=== PATIENT | male | born 1945 | race Caucasian/White ===

== ENCOUNTER → 2016-07-05 | Outpatient (CLI) | payer BC ==
[~2016-07-05] MED LIST: ACET325T96 PO; ASPI-435 PO; FLAX1CAP11 PO; IBUP-1050 PO; MULT-106 PO; OMEG10002 PO; RANI1TAB75 PO; REDCAP2 PO; SAW450CA5 PO; SELE200T2 PO; VTMD1000 PO
--- NOTE | 2016-07-09 11:44 | CODING QUERY MEDICAL NECESSITY ---
SUPPORTING DIAGNOSIS NEEDED Dr. Mckoy, A supporting diagnosis is required for the test/procedure performed on this patient in order for us to be reimbursed by the patient's insurance. Please provide a supporting diagnosis for the following test/procedure listed below next to the test name along with your signature. *If there is no additional diagnosis for this patient that would support the following test/procedure please document that below next to the test/procedure. Test(s)/Procedure(s) that require a supporting diagnosis: * [id number] PSA DIAGNOSIS: DATE OF SERVICE: 07/05/16 Provider Signature: Date: Thank you Steven Reyes [facility] Information Management Once completed, please kindly fax back to [phone] For questions please call [phone]
== END | disposition home or self-care (01) ==
LOC: C.LABBFT 10:22
PROVIDERS: ATTEND Urology
DX: N20.0 Calculus of kidney (principal); R10.9 Unspecified abdominal pain; R97.20 Elevated prostate specific antigen [PSA]; N40.1 Benign prostatic hyperplasia with lower urinary tract symptoms

== ENCOUNTER → 2016-11-12 | Outpatient (CLI) | payer BC | END | disposition home or self-care (01) | LOC: C.RDSM 15:40 | PROVIDERS: ATTEND Family Medicine Sports Medicine | DX: M25.512 Pain in left shoulder (principal) ==

== ENCOUNTER 2017-03-14 21:57 | Emergency (ER) | payer BC ==
[~2017-03-14] VITALS: Ht 182.9 cm; Wt 92.0 kg
[2017-03-14 22:04] VITALS: TEMP 36.7; Ht 182.9 cm; Wt 92.0 kg
[2017-03-14] MEDS ORDERED: ASPIRIN 81 MG CHEW PO STA (22:34)
[2017-03-14 22:39] VITALS: O2SAT 98
[2017-03-14] MEDS ORDERED: NITROGLYCERIN 0.4 MG SL PER TAB CHARGE SL PRN (22:45)
--- NOTE | 2017-03-14 22:48 | EMERGENCY ROOM VISIT NOTE ---
History Report prepared by Kirstin: Christiano Vang Under the Supervision of: Dr. Sophia Esquivel M.D. First contact with patient: 22:14 Chief Complaint: CARDIAC ASSESSMENT Stated Complaint: PAIN IN CHEST History of Present Illness The patient is a 71 year old male who presents to the Emergency Room with complaints of intermittent chest pain beginning yesterday. The patient states he developed his discomfort yesterday, and he thought it went away, but it did not. He reports his pain is "hard" and in the left side of his chest. The patient notes his mother and brothers have a cardiac history, but he denies any chronic conditions. He states he called his PCP today and was told to come here. The patient reports he was mildly sweaty and took an 81mg aspirin this morning. He denies a history of smoking, blood sugar trouble, pain with deep breathing, abdominal pain, pain radiating to his jaw, arm, or back, nausea, and shortness of breath. Source of History: patient Onset: yesterday Position: chest (left) Quality: other ("hard") Timing: intermittent Associated Symptoms: No SOB, No nausea, No abdominal pain, No back pain Note: Associated symptoms: mildly sweaty Denies: pain with deep breathing, pain radiating to his jaw or arm Review of Systems See HPI for pertinent positives & negatives. A total of 10 systems reviewed and were otherwise negative. Past Medical & Surgical Medical Problems: (1) Nephrolithiasis Family History Cancer Heart disease Social History Smoking Status: Never Smoker Drug Use: none Marital Status: Housing Status: lives with significant other Occupation Status: employed Current/Historical Medications Scheduled Aspirin (Aspirin 81), 81 MG PO QAM Cholecalciferol (Vitamin D3), 1,000 INTER.UNIT PO QAM Flaxseed (Linseed) (Flax Seed Oil), 1 CAP PO QAM Multiple Vitamins W/ Minerals (One Daily Mens), 1 TAB PO QAM Doucette-3 Fatty Acids (Fish Oil), 1,000 MG PO QAM Ranitidine HCl (Ranitidine 75), 75 MG PO QAM Red Yeast Rice Extract (Red Yeast Rice), 600 MG PO QAM Saw [place] ([place] Rep[place]) (Saw [place]), 900 MG PO QAM Selenium (Selenimin-200), 200 MCG PO QAM Scheduled PRN Acetaminophen Tab (Tylenol), 650 MG PO Q4H PRN for Pain or Fever Diclofenac Sod (Diclofenac Sodium Dr), 75 MG PO BID PRN for Pain Ibuprofen (Advil), 400 MG PO Q4H PRN for Pain Allergies Coded Allergies: No Known Allergies (Unverified , 11/27/15) Physical Exam Vital Signs Date Time Temp Pulse Resp B/P (MAP) Pulse Ox O2 Delivery O2 Flow Rate FiO2 03/15/17 00:57 59 16 116/75 97 Room Air 03/15/17 00:09 54 18 127/82 96 Room Air 03/14/17 23:03 68 18 141/86 93 Room Air 03/14/17 22:39 98 Room Air 03/14/17 22:31 57 03/14/17 22:20 98 Room Air 03/14/17 22:04 36.7 60 18 139/93 95 Room Air Physical Exam Vital signs reviewed. General: Well-appearing 71 year old male, in no significant distress. HEENT: No scleral icterus, PERRLA, neck supple. Atraumatic. Cardiovascular: Regular rate and rhythm, no extra sounds. Pulmonary: Clear to auscultation bilaterally, normal work of breathing. Abdomen: Soft, nontender, nondistended, positive bowel sounds. Musculoskeletal: Atraumatic, no peripheral edema. Mild tenderness with palpation to the left anterior chest wall. Neurologic: Patient awake alert and oriented x 3 Skin: Warm, dry, no rash Medical Decision & Procedures ER Provider Diagnostic Interpretation: X-ray results as stated below per interpretation by me and the radiologist: CHEST ONE VIEW PORTABLE CLINICAL HISTORY: chest pain pain COMPARISON STUDY: 01/09/2016 FINDINGS: The bones soft tissues and hemidiaphragms are normal. The cardiomediastinal silhouette is normal. The lungs are clear. The pulmonary vasculature is normal. IMPRESSION: Negative chest. The above report was generated using voice recognition software. It may contain grammatical, syntax or spelling errors. Electronically signed by: Robby Osorio M.D. 03/14/2017 10:49 PM Dictated Date/Time: 03/14/2017 10:48 PM Laboratory Results 03/14/17 22:30 Red Blood Count 5.22, Mean Corpuscular Volume 85.4, Mean Corpuscular Hemoglobin 30.1, Mean Corpuscular Hemoglobin Concent 35.2, Mean Platelet Volume 10.6, Neutrophils (%) (Auto) 57.5, Lymphocytes (%) (Auto) 25.4, Monocytes (%) (Auto) 13.4, Eosinophils (%) (Auto) 2.7, Basophils (%) (Auto) 0.5, Neutrophils # (Auto ) 4.52, Lymphocytes # (Auto) 2.00, Monocytes # (Auto) 1.05, Eosinophils # (Auto ) 0.21, Basophils # (Auto) 0.04 03/14/17 22:30 Test 03/14/17 22:30 03/15/17 00:19 White Blood Count 7.86 K/uL (4.8-10.8) Red Blood Count 5.22 M/uL (4.7-6.1) Hemoglobin 15.7 g/dL (14.0-18.0) Hematocrit 44.6 % (42-52) Mean Corpuscular Volume 85.4 fL (80-100) Mean Corpuscular Hemoglobin 30.1 pg (25-34) Mean Corpuscular Hemoglobin Concent 35.2 g/dl (32-36) Platelet Count 215 K/uL (130-400) Mean Platelet Volume 10.6 fL (7.4-10.4) Neutrophils (%) (Auto) 57.5 % Lymphocytes (%) (Auto) 25.4 % Monocytes (%) (Auto) 13.4 % Eosinophils (%) (Auto) 2.7 % Basophils (%) (Auto) 0.5 % Neutrophils # (Auto) 4.52 K/uL (1.4-6.5) Lymphocytes # (Auto) 2.00 K/uL (1.2-3.4) Monocytes # (Auto) 1.05 K/uL (0.11-0.59) Eosinophils # (Auto) 0.21 K/uL (0-0.5) Basophils # (Auto) 0.04 K/uL (0-0.2) RDW Standard Deviation 41.7 fL (36.4-46.3) RDW Coefficient of Variation 13.3 % (11.5-14.5) Immature Granulocyte % (Auto) 0.5 % Immature Granulocyte # (Auto) 0.04 K/uL (0.00-0.02) Anion Gap 6.0 mmol/L (3-11) Est Creatinine Clear Calc Drug Dose 79.4 ml/min Estimated GFR () 93.6 Estimated GFR (Non- 80.8 BUN/Creatinine Ratio 17.6 (10-20) Calcium Level 8.6 mg/dl (8.5-10.1) Total Bilirubin 0.4 mg/dl (0.2-1) Direct Bilirubin < 0.1 mg/dl (0-0.2) Aspartate Amino Transf (AST/SGOT) 19 U/L (15-37) Alanine Aminotransferase (ALT/SGPT) 36 U/L (12-78) Alkaline Phosphatase 68 U/L (45-117) Total Creatine Kinase 56 U/L (39-308) Creatine Kinase MB 1.1 ng/ml (0.5-3.6) Creatine Kinase MB Ratio 2.0 (0-3.0) Total Protein 6.8 gm/dl (6.4-8.2) Albumin 3.6 gm/dl (3.4-5.0) Bedside Troponin I < 0.030 ng/ml (0-0.045) Laboratory results per my review. Medications Administered Medications (Trade) Dose Ordered Sig/Rahat Route Start Time Stop Time Status Last Admin Dose Admin Nitroglycerin (Nitrostat Tab) 0.4 mg Q5M PRN SL 03/14/17 22:45 03/15/17 01:17 DC 03/14/17 23:02 0.4 MG Aspirin (Aspirin Chew) 243 mg NOW STAT PO 03/14/17 22:34 03/14/17 22:37 DC 03/14/17 23:03 243 MG Ketorolac Tromethamine (Toradol Inj) 30 mg NOW STAT IV 03/15/17 00:18 03/15/17 00:19 DC 03/15/17 00:31 30 MG ECG Indication: chest pain Rate (beats per minute): 54 Rhythm: other (sinus bradycardia with SA) Findings: other (Possible previous inferior infarct, T-wave abnormality in the interior lead) ED Course 2230: Past medical records reviewed. The patient was evaluated in room B07. A complete history and physical examination was performed. 2233: Ordered Aspirin 243mg PO 5: Ordered Nitroglycerin 0.4mg SL 0000: I reevaluated the patient and discussed his current exam findings. He states he prefers not to stay in the hospital. He notes his pain did get better with the nitroglycerin. He asked that I repeat his troponin level. 0018: Ordered Ketorolac Tromethamine 30mg IV 0046: Upon reevaluation, the patient appeared to have improvement of his symptoms. I discussed findings with him. He verbalized agreement of the treatment plan. The patient was discharged home. Medical Decision DDx: Acute coronary syndrome, pulmonary embolus, aortic dissection, musculoskeletal pain, pneumonia, pleural effusion, pneumothorax This pt was evaluated and appeared to be in no distress. IV access was obtained and lab work was drawn. EKG reveals no acute ischemia. Pt was given NTG with minimal relief. He was given additional ASA. CXR is clear. Pt's pain seems to be reproducible, but he does have a strong family history of CAD. Pt was given toradol 30 mg IV. A second 90 min trop was drawn and remains negative. Pt preferred outpat workup as the toradol seemed to help. I suspect this is MSK in nature. Pt was advised to f/u wit PCP this week for reevaluation and further cardiac testing. He will return to the ED for worsening of symptoms or any medical concerns. Pt and are happy with the plan and agree. Medication Reconcilliation Current Medication List: was personally reviewed by me Blood Pressure Screening Patient's blood pressure: Normal blood pressure Blood pressure disposition: Did not require urgent referral Impression Primary Impression: Atypical chest pain Scribe Attestation The scribe's documentation has been prepared under my direction and personally reviewed by me in its entirety. I confirm that the note above accurately reflects all work, treatment, procedures, and medical decision making performed by me. Departure Information Dispostion Home / Self-Care Referrals Maico Saunders M.D. (PCP) Forms IMPORTANT VISIT INFORMATION Patient Instructions My [facility] Additional Instructions Diagnosis: Atypical chest pain Continue your medications as prescribed. Continue aspirin 81 mg daily. Tylenol 650 mg every 6 hours as needed for pain. Follow-up with your physician within the next 2-3 days for reevaluation and consideration of further cardiac testing. Return to the emergency department immediately for worsening of symptoms or any medical concerns.
[2017-03-14 22:50] LABS: BASO % 0.5 %; BASO ABS # 0.04 K/uL (0-0.2); EOS % 2.7 %; EOS ABS # 0.21 K/uL (0-0.5); HEMATOCRIT 44.6 % (42-52); HEMOGLOBIN 15.7 g/dL (14.0-18.0); IG# 0.04 K/uL (0.00-0.02); LYMPH % 25.4 %; MEAN CELL VOLUME 85.4 fL (80-100); MEAN CORPUSCULAR HEMOGLOBIN 30.1 pg (25-34); MEAN CORPUSCULAR HGB CONC 35.2 g/dl (32-36); MEAN PLATELET VOLUME 10.6 fL (7.4-10.4); MONO % 13.4 %; MONO ABS # 1.05 K/uL (0.11-0.59); NEUT % 57.5 %; NEUT ABS # 4.52 K/uL (1.4-6.5); PLATELET COUNT 215 K/uL (130-400); RED CELL DISTRIBUTION WIDTH CV 13.3 % (11.5-14.5); RED CELL DISTRIBUTION WIDTH SD 41.7 fL (36.4-46.3); WHITE BLOOD COUNT 7.86 K/uL (4.8-10.8)
[2017-03-14] MEDS ORDERED: VLT/75 PO (22:59)
[2017-03-14 23:11] LABS: ALBUMIN 3.6 gm/dl (3.4-5.0); ALT/SGPT 36 U/L (12-78); AST/SGOT 19 U/L (15-37); BLOOD UREA NITROGEN 17 mg/dl (7-18); CALCIUM 8.6 mg/dl (8.5-10.1); CARBON DIOXIDE 26 mmol/L (21-32); CREATININE 0.95 mg/dl (0.60-1.40); GLUCOSE 87 mg/dl (70-99); POTASSIUM 3.9 mmol/L (3.5-5.1); SODIUM 137 mmol/L (136-145)
[2017-03-14 23:16] LABS: ALKALINE PHOSPHATASE 68 U/L (45-117); CKMB 1.1 ng/ml (0.5-3.6); TOTAL PROTEIN 6.8 gm/dl (6.4-8.2)
[2017-03-15] MEDS ORDERED: KETOROLAC TROMETHAMINE 30 MG/ML VIAL IV STA (00:18)
[2017-03-15 00:57] VITALS: BP 116/75; PULSE 59; O2SAT 97
== END 2017-03-15 01:09 | disposition home or self-care (01) ==
LOC: C.EDB 21:58
DX: R07.89 Other chest pain (principal); R00.1 Bradycardia, unspecified; Z79.82 Long term (current) use of aspirin

== ENCOUNTER → 2017-06-19 | Outpatient (CLI) | payer BC ==
[~2017-06-19] MED LIST changes: +ACET-1693 PO; -ACET325T96 PO; +VLT/75 PO
[2017-06-19 16:27] LABS: BASO % 0.3 %; BASO ABS # 0.02 K/uL (0-0.2); EOS % 4.8 %; EOS ABS # 0.34 K/uL (0-0.5); HEMATOCRIT 44.8 % (42-52); HEMOGLOBIN 15.6 g/dL (14.0-18.0); IG# 0.02 K/uL (0.00-0.02); LYMPH % 28.2 %; MEAN CELL VOLUME 85.2 fL (80-100); MEAN CORPUSCULAR HEMOGLOBIN 29.7 pg (25-34); MEAN CORPUSCULAR HGB CONC 34.8 g/dl (32-36); MEAN PLATELET VOLUME 10.6 fL (7.4-10.4); MONO % 11.7 %; MONO ABS # 0.83 K/uL (0.11-0.59); NEUT % 54.7 %; NEUT ABS # 3.89 K/uL (1.4-6.5); PLATELET COUNT 231 K/uL (130-400); RED CELL DISTRIBUTION WIDTH CV 13.3 % (11.5-14.5); RED CELL DISTRIBUTION WIDTH SD 41.5 fL (36.4-46.3)
[2017-06-19 16:45] LABS: ALBUMIN 3.9 gm/dl (3.4-5.0); ALT/SGPT 33 U/L (12-78); AST/SGOT 18 U/L (15-37); BLOOD UREA NITROGEN 15 mg/dl (7-18); CALCIUM 8.5 mg/dl (8.5-10.1); CARBON DIOXIDE 24 mmol/L (21-32); CHOLESTEROL 187 mg/dl (0-200); CREATININE 0.97 mg/dl (0.60-1.40); GLUCOSE 100 mg/dl (70-99); SODIUM 139 mmol/L (136-145)
[2017-06-19 16:53] LABS: ALKALINE PHOSPHATASE 70 U/L (45-117); LDL CHOLESTEROL CALCULATED 116 mg/dl; TOTAL PROTEIN 6.8 gm/dl (6.4-8.2)
== END | disposition home or self-care (01) ==
LOC: C.LABBFT 15:15
PROVIDERS: ATTEND Internal Medicine
DX: E78.5 Hyperlipidemia, unspecified (principal)

== ENCOUNTER → 2017-07-17 | Outpatient (CLI) | payer BC ==
[2017-07-17 12:50] LABS: ALBUMIN 3.8 gm/dl (3.4-5.0); ALT/SGPT 27 U/L (12-78); AST/SGOT 21 U/L (15-37); BLOOD UREA NITROGEN 14 mg/dl (7-18); CARBON DIOXIDE 26 mmol/L (21-32); CREATININE 1.04 mg/dl (0.60-1.40); GLUCOSE 91 mg/dl (70-99); SODIUM 140 mmol/L (136-145)
[2017-07-17 12:56] LABS: ALKALINE PHOSPHATASE 77 U/L (45-117); CHOLESTEROL 175 mg/dl (0-200); LDL CHOLESTEROL CALCULATED 111 mg/dl; TOTAL PROTEIN 7.2 gm/dl (6.4-8.2)
== END | disposition home or self-care (01) ==
LOC: C.LABBFT 10:31
PROVIDERS: ATTEND Nurse Practitioner
DX: E78.5 Hyperlipidemia, unspecified (principal); Z12.5 Encounter for screening for malignant neoplasm of prostate

== ENCOUNTER → 2017-10-15 | Outpatient (CLI) | payer BC ==
--- NOTE | 2017-10-15 12:38 | DIAGNOSTIC IMAGING REPORT ---
ABDOMEN FOR HERNIA CLINICAL HISTORY: 72 years-old Male presenting with R10.32 Left groin pain left groin pain, ? [id number]. TECHNIQUE: Real-time grayscale ultrasound imaging of the left inguinal region and thigh was performed for a focused evaluation at the site of clinical concern. COMPARISON: CT from 11/28/2015. FINDINGS: At the site of clinical concern in the left inguinal region and along the proximal left thigh, there is no peritoneal defect or hernia sac evident. Mild thickening of superficial soft tissues may be present in the proximal left thigh. No focal fluid collection. IMPRESSION: 1. No sonographic evidence of hernia. 2. Nonspecific soft tissue thickening. Correlate clinically for cellulitis. Electronically signed by: Rip Sharma M.D. 10/15/2017 12:37 PM Dictated Date/Time: 10/15/2017 12:35 PM
== END | disposition home or self-care (01) ==
LOC: C.ULTRBC 12:03
PROVIDERS: ATTEND Physician Assistant Medical
DX: R10.32 Left lower quadrant pain (principal)

== ENCOUNTER 2020-01-07 16:27 | Observation (INO) ==
[2020-01-07] MEDS ORDERED: FAMOTIDINE 20MG/5ML IV PUSH IV STA (17:41)
[2020-01-07] MEDS ORDERED: SODIUM CHLORIDE 0.9% 1000ML 500 ML IV ONE (17:41)
--- NOTE | 2020-01-07 18:06 | Emergency Department Note ---
Impression & Plan Precordial chest pain, Epigastric abdominal pain, Black stools ED Provider Note NAME: JOON MCBRIDE AGE: 74 SEX: M : 1945 ARRIVES VIA: Walk-In INFORMANT: [Patient] ED PROVIDER(S): [Wade Badillo MD] CHIEF COMPLAINT: Abdominal and chest pain HISTORY OF PRESENT ILLNESS: The patient is a 74-year-old male who presents with 2 weeks of some midsternal chest pain, epigastric abdominal pain, exertional shortness of breath, sweating and lightheadedness. The patient states that at 1 point during the last few weeks, he had some black stool. He describes his chest and abdominal pain as a 6/10. There is no pain radiation. The patient went to his doctor's office today. His ECG was okay. He was referred to the ER for the possibility of a bleeding ulcer. Patient does take aspirin daily, he is on antiacid medications. No prior history of GI bleeding. The patient states that he has no history of NC or coronary disease. REVIEW OF SYSTEMS: See HPI for pertinent positives and negatives. A total of ten systems were reviewed and were otherwise negative. PMHx/PSHx: See Below SOCIAL HISTORY: See Below. PHYSICAL EXAM: GENERAL: Patient is in no acute distress. HEENT: No acute trauma, normocephalic atraumatic, mucous membranes moist, no na aissatou congestion, no scleral icterus. NECK: No stridor, no adenopathy, no meningismus, trachea is midline. LUNGS: Clear to auscultation bilaterally, no wheeze, no rhonchi, breath sounds equal. HEART: Without murmurs gallops or rubs, regular rate and rhythm. ABDOMEN: Soft, moderately tender in the epigastrium, bowel sounds positive, no hernias, no peritonitis. Chest: Somewhat tender to the mid sternal chest wall EXTREMITIES: No cyanosis or edema, full range of motion of all the joints without pain or difficulty, no signs for acute trauma. NEUROLOGIC: Oriented x 3, no acute motor or sensory deficits, no focal weakness. SKIN: No rash, no jaundice, no diaphoresis. Rectal: Brown stool, heme-negative. DIFFERENTIAL DIAGNOSIS: Cardiac ischemia, aortic dissection, pulmonary embolism, ulcer, GI bleeding, pneumothorax, pneumonia, pericarditis, myocarditis, esophageal rupture, GERD, cholecystitis, pancreatitis, musculoskeletal, as well as other pathologies. EMERGENCY DEPARTMENT COURSE/PROCEDURES: ECG: Indication was chest pain. The ECG shows a sinus bradycardia with a rate of 57. There is an old inferior infarct. There is no ST elevation, no PVCs. The QTc is 410. Continuous Cardiac Monitoring: An order was placed for continuous cardiac monitoring. The monitor shows a rate of 92 with normal sinus rhythm. MEDICAL DECISION MAKING: There is no leukocytosis or concerning anemia. There is a normal platelet count. No worrisome coagulopathy. No significant electrolyte abnormality or ki dney failure. No liver enzyme elevation. No evidence for pancreatitis. ECG showed a sinus bradycardia, no acute ischemia. Cardiac enzyme testing x1 was not consistent with acute cardiac injury. Chest film did not show pneumonia or CHF. Gallbladder ultrasound did not show gallstones or evidence for acute cholecystitis. Rectal exam was performed, the stool was brown and heme- negative. On my exam, the patient did have some tenderness in the epigastrium and mid sternal chest wall. Patient received a 500 cc saline bolus, he was given IV Pepcid. The patient presents with 2 weeks of chest pain, shortness of breath and epigastric abdominal pain. He had had some black stools. His doctor was concerned about an ulcer and GI bleeding. Patient's work-up is reassuring. He does have some reproducible pain and certainly, the pain may be at least partly musculoskeletal. Given his history, I do think further cardiac/GI work-up is warranted. His symptoms are exertional. I spoke to the patient, I talked with case management, the on-call hospitalist was consulted. At this point, the cause for his complaints is not clear. Past Med/Surg History Medical History BPH (benign prostatic hyperplasia) Esophageal dilatation X3- due to strictures Esophageal reflux GERD (gastroesophageal reflux disease) Well controlled and stable Hearing deficit BILT EARS-WEARS HEARING AID Hyperlipidemia Nephrolithiasis (09/14/13) No current issues Pneumonia ~2015- no residual issues Surgical History H/O left inguinal hernia repair History of arthroscopy LEFT KNEE History of colonoscopy History of cystoscopy History of endoscopic sinus surgery History of esophagogastroduodenoscopy (EGD) History of lithotripsy Family History Brother Family hx of colon cancer Colorectal cancer Prostate cancer Daughter Family hx of colon cancer Colorectal cancer Breast cancer Denies family history of Ovarian cancer Myocardial infarction Social History Smoking Status: Never smoker Second Hand Exposure: Yes (hx as a child); Hx Alcohol Use: Yes Alcohol type: beer Hx Substance Use: No Preferred Language: Occitan Communication Ability: Effective Visual Impairment: No Limitations Hearing Ability: Use of Hearing Aid [employer] Sh[employer] Technician Required: No Beliefs That Will Affect Care: Islam Islam Beliefs: CONGREGATIONAL marital status: Current Living Situation: Spouse current occupational status: retired Feels Safe at Home: Yes Dental Care, Regularly: Yes Physical Activity Frequency: 3-4 Times per Week Assistive Devices: Glasses and Hearing Aid - Bilateral Allergies Allergies Allergy/AdvReac Type Severity Reaction Status Date / Time No Known Allergies Allergy Verified 01/07/20 15:39 Home Meds Home Medications Medication Instructions Recorded Confirmed aspirin [Aspirin Low Dose] 81 mg PO QAM #0 09/14/13 01/07/20 cholecalciferol (vitamin D3) 1,000 unit PO QAM #0 09/14/13 01/07/20 multivitamin 1 tab PO QAM #0 09/14/13 01/07/20 red yeast rice 600 mg PO QAM #0 09/14/13 01/07/20 selenium 200 mcg PO QAM #0 09/14/13 01/07/20 flaxseed oil 1,200 mg PO QAM #0 11/23/14 01/07/20 [id number] oil [Fish 1 cap PO QAM 03/15/18 01/07/20 Oil] saw palmetto 450 mg PO QAM 03/15/18 01/07/20 Previous Rx's Medication Instructions Recorded omeprazole 40 mg capsule,delayed 40 mg PO DAILY #90 cap 10/23/19 release Results & Data (ED) Vital Signs Vital Signs - 24 hr 01/07/20 16:52 01/07/20 17:23 01/07/20 17:26 Temperature 36.8 C Temperature Source Oral Pulse Rate 65 68 Pulse Rate [Apical] 57 L Pulse Rate from SpO2 Sensor 65 Pulse Rhythm Regular Pulse Rhythm [Apical] Regular Pulse Strength Normal Respiratory Rate 18 15 19 Respiratory Effort / Characteristics Non-Labored Spontaneous Non-Labored Spontaneous Respiratory Depth Normal Normal Respiratory Pattern Regular Regular Blood Pressure 153/98 H 132/76 Blood Pressure [Left Arm] 132/76 Blood Pressure Mean 116 90 Blood Pressure Mean [Left Arm] 94 Blood Pressure Position Sitting Blood Pressure Position [Left Arm] Sitting Pulse Oximetry 95 94 95 Oxygen Delivery Method Room Air Room Air Sepsis Recent Fever Within 48 Hours No Sepsis New/Unexplained Change in Mental Status No Sepsis Action Taken by Nursing No Action Required 01/07/20 17:28 01/07/20 17:30 01/07/20 18:00 Temperature Temperature Source Pulse Rate 57 L 58 L 60 Pulse Rate [Apical] Pulse Rate from SpO2 Sensor 58 L 58 L 59 L Pulse Rhythm Pulse Rhythm [Apical] Pulse Strength Respiratory Rate 15 15 18 Respiratory Effort / Characteristics Respiratory Depth Respiratory Pattern Blood Pressure 162/95 H Blood Pressure [Left Arm] Blood Pressure Mean 108 Blood Pressure Mean [Left Arm] Blood Pressure Position Blood Pressure Position [Left Arm] Pulse Oximetry 96 95 95 Oxygen Delivery Method Sepsis Recent Fever Within 48 Hours Sepsis New/Unexplained Change in Mental Status Sepsis Action Taken by Nursing 01/07/20 18:30 01/07/20 19:00 Temperature Temperature Source Pulse Rate 60 Pulse Rate [Apical] 93 H Pulse Rate from SpO2 Sensor Pulse Rhythm Pulse Rhythm [Apical] Regular Pulse Strength Respiratory Rate 24 16 Respiratory Effort / Characteristics Respiratory Depth Respiratory Pattern Blood Pressure 163/94 H Blood Pressure [Left Arm] 151/98 H Blood Pressure Mean 114 Blood Pressure Mean [Left Arm] 115 Blood Pressure Position Blood Pressure Position [Left Arm] Lying Pulse Oximetry 98 Oxygen Delivery Method Room Air Sepsis Recent Fever Within 48 Hours Sepsis New/Unexplained Change in Mental Status Sepsis Action Taken by Residential Medications Current Medication List: was personally reviewed by me Laboratory Data Attestation: I reviewed the patient's lab results. Result diagrams: 01/07/20 17:45 01/07/20 17:45 Lab Results 01/07/20 01/07/20 01/07/20 Range/Units 17:45 17:45 17:45 WBC 7.80 (4.8-10.8) K/uL RBC 5.18 (4.7-6.1) M/uL Hgb 15.2 (14.0-18.0) g/dL Hct 45.4 (42-52) % MCV 87.6 (80-100) fL MCH 29.3 (25-34) pg MCHC 33.5 (32-36) g/dL RDW Std Deviation 44.1 (36.4-46.3) fL RDW Coeff of Bertram 13.7 (11.5-14.5) % Plt Count 228 (130-400) K/uL MPV 10.8 H (7.4-10.4) fL Immature Gran % (Auto) 0.3 % Neut % (Auto) 66.2 % Lymph % (Auto) 20.1 % [place] % (Auto) 11.9 % Eos % (Auto) 1.2 % Baso % (Auto) 0.3 % Neut # (Auto) 5.17 (1.4-6.5) K/uL Lymph # (Auto) 1.57 (1.2-3.4) K/uL [place] # (Auto) 0.93 H (0.11-0.59) K/uL Eos # (Auto) 0.09 (0-0.5) K/uL Baso # (Auto) 0.02 (0-0.2) K/uL Immature Gran # (Auto) 0.02 (0.00-0.02) K/uL PT 10.9 (9.0-12.0) Seconds INR 1.0 (0.9-1.1) APTT 31.6 H (21.0-31.0) Seconds PTT Ratio 1.1 Sodium 139 (136-145) mmol/L Potassium 3.9 (3.5-5.1) mmol/L Chloride 108 H (98-107) mmol/L Carbon Dioxide 23 (21-32) mmol/L Anion Gap 8.0 (3-11) BUN 16 (7-18) mg/dl Creatinine 0.95 (0.6-1.4) mg/dl Est Cr Clr Drug Dosing 76.0 ml/min Est GFR ( Amer) 91.7 Est GFR (Non-Af Amer) 79.1 BUN/Creatinine Ratio 16.7 (10-20) Glucose 86 (70-99) mg/dl Calcium 8.8 (8.5-10.1) mg/dl Magnesium 2.1 (1.8-2.4) mg/dl Total Bilirubin 0.5 (0.2-1) mg/dl AST 19 (15-37) U/L ALT 25 (12-78) U/L Alkaline Phosphatase 74 (45-117) U/L Troponin I < 0.015 (0-0.045) ng/ml Total Protein 6.8 (6.4-8.2) gm/dl Albumin 3.5 (3.4-5.0) gm/dl Globulin 3.3 (2.5-4.0) gm/dl Albumin/Globulin Ratio 1.1 (0.9-2) Lipase 66 L (73-393) U/L Administered Medications Discontinued Medications Famotidine (Famotidine 20mg/5ml Iv Push) 20 mg IV ONE STA Stop: 01/07/20 17:42 Last Admin: 01/07/20 17:58 Dose: 20 mg Documented by: [id number] Sodium Chloride (Nss 1000ml) 500 mls @ 999 mls/hr IV .Q31M ONE Stop: 01/07/20 18:11 Last Infusion: 01/07/20 18:36 Dose: 0 mls/hr Documented by: [id number] Admin: 01/07/20 17:58 Dose: 999 mls/hr Documented by: [id number] Imaging Data Radiologist's Impression: XR chest 1V portable CLINICAL HISTORY: Atypical chest pain COMPARISON STUDY: April 16, 2019 FINDINGS: The heart is the upper limits of normal in size. There is persistent aortic tortuosity/ectasia. There is no failure. There is no focal pulmonary consolidation. There are no pleural effusions. There is a calcified left lower lung zone granuloma.[ IMPRESSION: No active disease in the chest. Biliary ultrasound CLINICAL HISTORY: Epigastric pain COMPARISON STUDY: No previous studies for comparison. FINDINGS: The pancreas appear normal as visualized. No gallstones were delineated. There is a small left lobe hepatic cyst. The liver appears otherwise normal. There is no ductal dilatation. The common bile duct measured 3 mm. There is no right-sided hydronephrosis. Right renal cysts are visualized. IMPRESSION: 1. No gallstones identified 2. No ductal dilatation 3. Right renal cysts Discharge Plan Visit Data Chief Complaint: Abdominal Pain Stated Complaint: ABDOMINAL PAIN, ULCER ED Provider: Wade Badillo Discharge Problem: Precordial chest pain, Epigastric abdominal pain, Black stools Patient Disposition: Admitted As Inpatient Condition: Good Forms Stand Alone Forms: [facility] Prescriptions Prescriptions: No Action multivitamin Tablet 1 tab PO QAM Qty: 0 RF: 0 aspirin [Aspirin Low Dose] 81 mg Tablet,Delayed Release (Dr/Ec) 81 mg PO QAM Qty: 0 RF: 0 cholecalciferol (vitamin D3) 1,000 unit Capsule 1,000 unit PO QAM Qty: 0 RF: 0 red yeast rice 600 mg Capsule 600 mg PO QAM Qty: 0 RF: 0 selenium 200 mcg Capsule 200 mcg PO QAM Qty: 0 RF: 0 flaxseed oil 1,000 mg Capsule 1,200 mg PO QAM Qty: 0 RF: 0 omeprazole 40 mg capsule,delayed release(DR/EC) 40 mg PO DAILY Qty: 90 RF: 3 saw palmetto 450 mg Capsule 450 mg PO QAM RF: 0 Fish Oil 120 mg-180 mg- 60 mg-1,200 mg Capsule,Delayed Release(Dr/Ec) 1 cap PO QAM RF: 0 Referrals Referrals: Maico Saunders III, MD [Primary Care Provider] -
[2020-01-07 18:10] LABS: Basophils # (auto) 0.02 K/uL (0-0.2); Basophils % (auto) 0.3 %; Eosinophils # (auto) 0.09 K/uL (0-0.5); Eosinophils % (auto) 1.2 %; Hematocrit (blood only) 45.4 % (42-52); Hemoglobin 15.2 g/dL (14.0-18.0); Immature Granulocytes # (auto) 0.02 K/uL (0.00-0.02); Immature Granulocytes % (auto) 0.3 %; Lymphocytes # (auto) 1.57 K/uL (1.2-3.4); Lymphocytes % (auto) 20.1 %; Mean Corpuscular Hemoglobin 29.3 pg (25-34); Mean Corpuscular Hgb Conc 33.5 g/dL (32-36); Mean Corpuscular Volume 87.6 fL (80-100); Mean Platelet Volume 10.8 fL (7.4-10.4); Monocytes # (auto) 0.93 K/uL (0.11-0.59); Monocytes % (auto) 11.9 %; Neutrophils # (auto) 5.17 K/uL (1.4-6.5); Neutrophils % (auto) 66.2 %; Platelet Count 228 K/uL (130-400); RDW Coefficient of Variation 13.7 % (11.5-14.5); RDW Standard Deviation 44.1 fL (36.4-46.3); Red Blood Count 5.18 M/uL (4.7-6.1)
[2020-01-07 18:22] LABS: Partial Thromboplastin Ratio 1.1; Partial Thromboplastin Time 31.6 Seconds (21.0-31.0); Prothrombin Time 10.9 Seconds (9.0-12.0)
[2020-01-07 18:26] LABS: Alanine Aminotransferase 25 U/L (12-78); Albumin Level 3.5 gm/dl (3.4-5.0); Aspartate Aminotransferase 19 U/L (15-37); BUN Creatinine Ratio 16.7 (10-20); Blood Urea Nitrogen 16 mg/dl (7-18); Calcium 8.8 mg/dl (8.5-10.1); Carbon Dioxide 23 mmol/L (21-32); Chloride 108 mmol/L (98-107); Est GFR (African American) 91.7; Est GFR (Non-African American) 79.1; Glucose 86 mg/dl (70-99); Lipase 66 U/L (73-393); Magnesium 2.1 mg/dl (1.8-2.4); Potassium 3.9 mmol/L (3.5-5.1); Sodium 139 mmol/L (136-145)
--- NOTE | 2020-01-07 18:30 | XRay Report ---
XR chest 1V portable CLINICAL HISTORY: Atypical chest pain COMPARISON STUDY: April 16, 2019 FINDINGS: The heart is the upper limits of normal in size. There is persistent aortic tortuosity/ecta brandin. There is no failure. There is no focal pulmonary consolidation. There are no pleural effusions. There is a calcified left lower lung zone granuloma.[ IMPRESSION: No active disease in the chest. ACT 112: Negative or not required by law. Electronically signed by: Kwabena Willis M.D. 01/07/2020 6:28 PM
[2020-01-07 18:31] LABS: Albumin Globulin Ratio 1.1 (0.9-2); Alkaline Phosphatase 74 U/L (45-117); Bilirubin,Total 0.5 mg/dl (0.2-1); Globulin 3.3 gm/dl (2.5-4.0); Total Protein 6.8 gm/dl (6.4-8.2); Troponin I < 0.015 ng/ml (0-0.045)
--- NOTE | 2020-01-07 19:14 | Ultrasound Report ---
Biliary ultrasound CLINICAL HISTORY: Epigastric pain COMPARISON STUDY: No previous studies for comparison. FINDINGS: The pancreas appear normal as visualized. No gallstones were delineated. There is a small l eft lobe hepatic cyst. The liver appears otherwise normal. There is no ductal dilatation. The common bile duct measured 3 mm. There is no right-sided hydronephrosis. Right renal cysts are visualized. IMPRESSION: 1. No gallstones identified 2. No ductal dilatation 3. Right renal cysts ACT 112: Negative or not required by law. Electronically signed by: Kwabena Willis M.D. 01/07/2020 7:13 PM
--- NOTE | 2020-01-07 21:42 | History & Physical Report ---
Date of Service January 07, 2020 Assessment & Plan (1) Precordial chest pain: Symptoms have a mix of cardiac and GI features. Initial troponin is negative after 2 weeks of off/on symptoms, so actual cardiac damage is unlikely. Given concern for unstable angina, will hold off on stress test until seen by cardiology. - Trend troponins and EKGs - TTE ordered - Telemetry - Cardiology consulted - Continue ASA, but hold off on Plavix or heparin gtt for now given the concern for ulcer. (2) Epigastric abdominal pain: Mixed in with chest pain, he also has some epigastric pain and tenderness. He also reports one episode of dark stools ~3 days ago. He and reported to me that he had never had an EGD, but perhaps there was confusion because his chart indicates history of esophageal stricture and dilations. Hgb presently stable at baseline ~15 which points away from any large bleed. - Consult GI - PPI IV BID - Monitor hgb (3) Hyperlipidemia: - Continue fish oil on discharge (4) GERD (gastroesophageal reflux disease): - Plan as above (5) DVT prophylaxis: SCDs - Low DVT risk per admission calculator, plus concern for GI bleed History of Present Illness Primary Care Provider: Maico Saunders MD 74yo M w/ hx of HLD and BPH who presents for chest/epigastric pain. He reports the pain began about 2 weeks ago. He was raking leaves that day and had no issues; however, that night he woke up with chest pain that radiated across his chest and was accompanied by sweating, nausea, lightheadedness. It gradually faded; however, he has been having ongoing episodes like this since then along with accompanying nausea. He has not had any emesis, but does report that 2-3 days ago he had one episode of dark, melenic stools. He also has felt short of breath and clammy with these episodes. He reports that it does seem to improve slightly with eating, but otherwise no major ameliorating or exacerbating factors. Allergies Allergy/AdvReac Type Severity Reaction Status Date / Time No Known Allergies Allergy Verified 01/07/20 15:39 Home Medications Home Medications Medication Instructions Recorded Confirmed Type aspirin [Aspirin Low Dose] 81 mg PO QAM #0 09/14/13 01/07/20 History cholecalciferol (vitamin D3) 1,000 unit PO QAM #0 09/14/13 01/07/20 History multivitamin 1 tab PO QAM #0 09/14/13 01/07/20 History red yeast rice 600 mg PO QAM #0 09/14/13 01/07/20 History selenium 200 mcg PO QAM #0 09/14/13 01/07/20 History flaxseed oil 1,200 mg PO QAM #0 11/23/14 01/07/20 History ibpjn-1m-fxu-epa-fish oil [Fish 1 cap PO QAM 03/15/18 01/07/20 History Oil] saw palmetto 450 mg PO QAM 03/15/18 01/07/20 History omeprazole 40 mg capsule,delayed 40 mg PO DAILY #90 cap 10/23/19 01/07/20 Rx release Past Med/Surg History Medical History BPH (benign prostatic hyperplasia) Esophageal dilatation X3- due to strictures Esophageal reflux GERD (gastroesophageal reflux disease) Well controlled and stable Hearing deficit BILT EARS-WEARS HEARING AID Hyperlipidemia Nephrolithiasis (09/14/13) No current issues Pneumonia ~2014- no residual issues Surgical History H/O left inguinal hernia repair History of arthroscopy LEFT KNEE History of colonoscopy History of cystoscopy History of endoscopic sinus surgery History of esophagogastroduodenoscopy (EGD) History of lithotripsy Family History Brother Family hx of colon cancer Colorectal cancer Prostate cancer Daughter Family hx of colon cancer Colorectal cancer Breast cancer Denies family history of Ovarian cancer Myocardial infarction Social History Smoking Status: Never smoker Second Hand Exposure: Yes (hx as a child); Hx Alcohol Use: Yes Alcohol type: beer Hx Substance Use: No Preferred Language: Malagasy Communication Ability: Effective Visual Impairment: No Limitations Hearing Ability: Use of Hearing Aid Comb Machine Operator Required: No Beliefs That Will Affect Care: Quaker Quaker Beliefs: MANDAEISM marital status: Current Living Situation: Spouse current occupational status: retired Feels Safe at Home: Yes Dental Care, Regularly: Yes Physical Activity Frequency: 3-4 Times per Week Assistive Devices: Glasses and Hearing Aid - Bilateral Review of Systems Review of Systems: All systems reviewed & are unremarkable except as noted in HPI & below Physical Exam Constitutional: WD/WN, vitals as above Eyes: EOM intact bilaterally; no conjunctival abnormality ENMT: external ear and nose normal, oropharynx normal Neck: trachea midline, no thyromegaly normal visual inspection Respiratory: normal respiratory effort, lungs clear to auscultation no respiratory distress Cardiovascular: RRR, no murmur, no edema Gastrointestinal (Abdomen): Inspection/Auscultation: abdomen normal to inspection; abdomen not distended Musculoskeletal: no cyanosis or clubbing, extremities motor strength 5/5 Skin: no rashes, warm and dry Neurologic: moves all extremities and awake Psychiatric: Orientation: alert, oriented to person and cooperative Results & Data Results & Data ([facility]) Vital Signs (Past 12 Hours) Vital Signs Temp Pulse Pulse Resp BP BP Pulse Ox 01/07/20 19:00 93 H 16 151/98 H 98 01/07/20 18:30 60 24 163/94 H 01/07/20 18:00 60 18 162/95 H 95 01/07/20 17:30 58 L 15 95 01/07/20 17:28 57 L 15 96 01/07/20 17:26 68 19 132/76 95 01/07/20 17:23 57 L 15 132/76 94 01/07/20 16:52 36.8 C 65 18 153/98 H 95 Code Status & VTE Plan VTE Prophylaxis Plan VTE Prophylaxis will be ordered: Yes PG Care Time/CCT Total # of Minutes Spent Total Time Spent with Patient: Total time spent is greater than 50% in coordination of care (as documented) at patient's floor/unit and/or counseling patient: Coding Level of Care Code 00626 OBS Care - Level 3 Diagnoses Precordial chest pain R07.2 Epigastric abdominal pain R10.13 Hyperlipidemia E78.5 GERD (gastroesophageal reflux disease) K21.9 DVT prophylaxis Z29.9
[2020-01-07] MEDS ORDERED: ONDANSETRON INJ 2 MG/ML 2 ML VIAL IV PRN (23:19)
[2020-01-07] MEDS ORDERED: ACETAMINOPHEN 325 MG TAB PO PRN (23:19)
[2020-01-08] MEDS: PANTOprazole 40 MG in SYRINGE 0 ML IV SCH ×3 (00:27→19:23)
[2020-01-08 07:11] LABS: Hematocrit (blood only) 45.5 % (42-52); Hemoglobin 15.2 g/dL (14.0-18.0); Mean Corpuscular Hemoglobin 29.5 pg (25-34); Mean Corpuscular Hgb Conc 33.4 g/dL (32-36); Mean Corpuscular Volume 88.3 fL (80-100); Platelet Count 226 K/uL (130-400); RDW Coefficient of Variation 13.8 % (11.5-14.5); RDW Standard Deviation 44.6 fL (36.4-46.3); Red Blood Count 5.15 M/uL (4.7-6.1); White Blood Count 7.21 K/uL (4.8-10.8)
[2020-01-08 07:40] LABS: BUN Creatinine Ratio 15.6 (10-20); Calcium 8.4 mg/dl (8.5-10.1); Creatinine Clr Calc Pharmacy 70.1 ml/min; Est GFR (African American) 83.1; Est GFR (Non-African American) 71.7; Magnesium 2.2 mg/dl (1.8-2.4); Potassium 3.9 mmol/L (3.5-5.1)
[2020-01-08] MEDS: ASPIRIN 81 MG ECTAB PO SCH (07:48)
[2020-01-08] MEDS ORDERED: NITROGLYCERIN SL 0.4 MG/TAB TAB ONE (09:14)
--- NOTE | 2020-01-08 09:38 | Gastrointestinal Consultation ---
Date of Consultation January 08, 2020 Assessment & Plan (1) Precordial chest pain: With an episode of melena several days ago. H/H 15.2/45.5. -Continue Protonix 40 mg BID. -Can add Carafate 1 gm four times daily prior to meals and bedtime. -Avoid NSAIDs. -Cardiac work-up pending; Patient had a stress test this AM and is having a catheterization today. -If patient remains stable and without further bleeding, an EGD can be arranged as an outpatient. Thank you for allowing us to participate in the care of this patient. If you should have any further questions or concerns, do not hesitate to contact us at extension [phone] or [phone]. Supervising Physician Co-Signing Physician Notes Agree with ALENA Martin Patient was undergoing cardiac cath and was not seen by me today Agree with twice daily PPI, addition of Carafate and EGD as outpatient if needed. History of Present Illness Attending Physician: Emir Pulido MD History of Present Illness Patient is a 74 yo male who was admitted for chest pain/epigastric pain. He reports the pain began 2 weeks ago. He reports that the pain begins in the center of his chest, but radiates across the chest. He reports associated sweating, nausea, & lightheadedness. These episodes have been occurring intermittently with nausea. No reports of reflux, heartburn, or vomiting. 2-3 days ago there was a questionable single episode of dark stool. No reports of NSAID use. Patient has a history of GERD for which he takes Omeprazole 40 mg daily. He had an unremarkable EGD in 2012. His H/H is 15.2/45.5. He had a colonoscopy in 2018 with internal hemorrhoids and polyps. Allergies Allergy/AdvReac Type Severity Reaction Status Date / Time No Known Allergies Allergy Verified 01/07/20 15:39 Home Medications Home Medications Medication Instructions Recorded Confirmed Type aspirin [Aspirin Low Dose] 81 mg PO QAM #0 09/14/13 01/07/20 History cholecalciferol (vitamin D3) 1,000 unit PO QAM #0 09/14/13 01/07/20 History multivitamin 1 tab PO QAM #0 09/14/13 01/07/20 History red yeast rice 600 mg PO QAM #0 09/14/13 01/07/20 History selenium 200 mcg PO QAM #0 09/14/13 01/07/20 History flaxseed oil 1,200 mg PO QAM #0 11/23/14 01/07/20 History wbcxm-1t-wzk-epa-fish oil [Fish 1 cap PO QAM 03/15/18 01/07/20 History Oil] saw palmetto 450 mg PO QAM 03/15/18 01/07/20 History omeprazole 40 mg capsule,delayed 40 mg PO DAILY #90 cap 10/23/19 01/07/20 Rx release Patient History Medical History BPH (benign prostatic hyperplasia) Esophageal dilatation X3- due to strictures Esophageal reflux GERD (gastroesophageal reflux disease) Well controlled and stable Hearing deficit BILT EARS-WEARS HEARING AID Hyperlipidemia Nephrolithiasis (09/14/13) No current issues Pneumonia ~2014- no residual issues Surgical History H/O left inguinal hernia repair History of arthroscopy LEFT KNEE History of colonoscopy History of cystoscopy History of endoscopic sinus surgery History of esophagogastroduodenoscopy (EGD) History of lithotripsy Family History Brother Family hx of colon cancer Colorectal cancer Prostate cancer Daughter Family hx of colon cancer Colorectal cancer Breast cancer Denies family history of Ovarian cancer Myocardial infarction Social History Smoking Status: Never smoker Second Hand Exposure: Yes (hx as a child); Hx Alcohol Use: Yes Alcohol type: beer Hx Substance Use: No Preferred Language: Japanese Communication Ability: Effective Visual Impairment: No Limitations Hearing Ability: Use of Hearing Aid Director Of Recruitment And Admissions Required: No Beliefs That Will Affect Care: None marital status: Current Living Situation: Spouse current occupational status: retired Feels Safe at Home: Yes Dental Care, Regularly: Yes Physical Activity Frequency: 3-4 Times per Week Assistive Devices: Glasses Review of Systems Constitutional: no fever and no chills Respiratory: no cough and no dyspnea Cardiovascular: + chest pain Gastrointestinal: + melena; no belching, no heartburn and no dysphagia Musculoskeletal: no problem reported Neurologic: no problem reported Psychiatric: no problem reported Physical Exam Constitutional: well developed and well nourished Neck: normal visual inspection Respiratory: normal respiratory effort; no respiratory distress Cardiovascular: Extremities: no edema Gastrointestinal (Abdomen): Inspection/Auscultation: abdomen normal to inspection Musculoskeletal: Head/Neck/Chest: normocephalic Skin: no rashes Psychiatric: A+Ox3, euthymic affect Results & Data ([facility]) Vital Signs (Past 12 Hours) Vital Signs Temp Pulse Pulse Pulse Resp BP BP 01/08/20 07:37 36.6 C 57 L 16 01/08/20 07:23 54 L 01/08/20 03:58 36.5 C 60 16 147/88 H 01/08/20 00:19 57 L 01/07/20 23:46 36.5 C 52 L 18 01/07/20 22:50 71 16 160/79 H 01/07/20 22:00 69 16 155/80 H BP Pulse Ox 01/08/20 07:37 124/74 95 01/08/20 07:23 01/08/20 03:58 96 01/08/20 00:19 01/07/20 23:46 169/88 H 92 01/07/20 22:50 98 01/07/20 22:00 98 PG Care Time/CCT Total # of Minutes Spent Total Time Spent with Patient: Total time spent is greater than 50% in coordination of care (as documented) at patient's floor/unit and/or counseling patient: Coding Level of Care Code 71227 Initial Inpt Care Lvl 3 Diagnoses Precordial chest pain R07.2
--- NOTE | 2020-01-08 10:07 | Cardiology Consultation ---
Date of Consultation January 08, 2020 Assessment & Plan (1) Precordial chest pain: He has some typical and atypical features for cardiac etiology. The prolonged duration of his symptoms without any elevation in biomarkers suggest that most of his symptoms are noncardiac. However, superimposed upon this chronic discomfort appears to be worsening symptoms with activity more suggestive of stable angina. It seems that the patient will require some form of gastrointestinal evaluation. I think based on his symptoms and need for additional procedures we can proceed with noninvasive testing currently. If stress testing does not reveal any concerns regarding obstructive coronary disease, he could certainly proceed with a noncardiac evaluation for his symptoms. History of Present Illness Reason for Consultation: Chest pain Requesting Physician: Ashok Attending Physician: Emir Pulido MD History of Present Illness The patient is a 74-year-old gentleman without a known history of cardiac disease who has been experiencing chest discomfort for approximately 2 weeks. Patient states that his symptoms started nearly 2 weeks ago the evening after he was out chopping wood. He describes the symptom as a discomfort or tightness all along the lower precordium. It appears to involve the lateral aspect of the chest as well. The symptoms self appears to have been present in some form for nearly 2 weeks. It does get worse with some activity such as at ascending stairs or carrying heavy items. Walking at a rapid pace or other moderate activity such as yd work does not necessarily make the pain worse. There is some associated breathing difficulty. He states that with deep inspiration the symptoms appeared to improve slightly. He also has episodes primarily at nighttime where he will wake diaphoretic, nauseated and with worsening discomfort in the precordial area. Often times he will sit up and this alleviates a lot of his symptoms. He presented to his primary care physician yesterday for evaluation was sent to the emergency room over concerns regarding cardiac etiology. 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 He is able to perform mild activity without exacerbation of his symptoms. However, he does report some persistent symptoms at all times. Last evening he reported some worsening discomfort in his abdomen with palpation and some worsening discomfort with palpation of the xiphoid area. He also reports and sensation of dizziness. This is fairly persistent and perhaps worse with activity. He does not describe it as presyncopal. He has not suffered syncope. He has not been aware of any palpitations. He denies orthopnea or paroxysmal nocturnal dyspnea. He has not had to change his diet. No difficulty with eating. No actual vomiting. He did report 1 dark stool which occurred few days ago. None since. Allergies Allergy/AdvReac Type Severity Reaction Status Date / Time No Known Allergies Allergy Verified 01/07/20 15:39 Home Medications Home Medications Medication Instructions Recorded Confirmed Type aspirin [Aspirin Low Dose] 81 mg PO QAM #0 09/14/13 01/11/20 History cholecalciferol (vitamin D3) 1,000 unit PO QAM #0 09/14/13 01/11/20 History multivitamin 1 tab PO QAM #0 09/14/13 01/11/20 History selenium 200 mcg PO QAM #0 09/14/13 01/11/20 History flaxseed oil 1,200 mg PO QAM #0 11/23/14 01/11/20 History Fish Oil 1 cap PO QAM 03/15/18 01/11/20 History saw palmetto 450 mg PO QAM 03/15/18 01/11/20 History atorvastatin 40 mg PO DAILY #30 tab 01/09/20 01/11/20 Rx isosorbide mononitrate 30 mg PO QAM 30 Days #30 tab 01/09/20 01/11/20 Rx metoprolol succinate 25 mg PO DAILY #30 tab 01/09/20 01/11/20 Rx omeprazole 40 mg PO BID 30 Days #60 cap 01/09/20 01/11/20 Rx Patient History Medical History BPH (benign prostatic hyperplasia) Esophageal dilatation X3- due to strictures Esophageal reflux GERD (gastroesophageal reflux disease) Well controlled and stable Hearing deficit BILT EARS-WEARS HEARING AID Hyperlipidemia Nephrolithiasis (09/14/13) No current issues Pneumonia ~2014- no residual issues Surgical History H/O left inguinal hernia repair History of arthroscopy LEFT KNEE History of colonoscopy History of cystoscopy History of endoscopic sinus surgery History of esophagogastroduodenoscopy (EGD) History of lithotripsy Family History Brother Family hx of colon cancer Colorectal cancer Prostate cancer Daughter Family hx of colon cancer Colorectal cancer Breast cancer Denies family history of Ovarian cancer Myocardial infarction Social History Smoking Status: Never smoker Second Hand Exposure: Yes (hx as a child); Hx Alcohol Use: Yes Alcohol type: beer Hx Substance Use: No Preferred Language: Danish Communication Ability: Effective Visual Impairment: No Limitations Hearing Ability: Use of Hearing Aid Speeder Frame Tender Required: No Beliefs That Will Affect Care: None marital status: Current Living Situation: Spouse current occupational status: retired Feels Safe at Home: Yes Dental Care, Regularly: Yes Physical Activity Frequency: 3-4 Times per Week Assistive Devices: None Review of Systems Review of Systems: All systems reviewed & are unremarkable except as noted in HPI & below Per HPI. Physical Exam Physical Exam: The patient is alert and oriented. Mood and affect appeared normal. He answered all questions appropriately. HEENT: Pupils are equal and reactive to light and accommodation. Extraocular movements are intact. The sclerae are anicteric. Neuro: Cranial nerves intact Neck: Patient's neck is supple. He has palpable carotid pulses bilaterally without bruits on auscultation. There is no evidence of jugular venous distention. The thyroid is not enlarged. Lungs: Clear to auscultation bilaterally. He has good air movement without use of accessory muscles. No rales wheezes or rhonchi. Chest: Mild tenderness to palpation around the xiphoid process. Cardiac: Heart demonstrates a regular rate and rhythm. Normal S1 and S2. No murmurs on examination. Pulses: The patient has palpable radial pulses bilaterally that are equal in intensity Extremities: There was no evidence of hypoperfusion. There is no cyanosis or clubbing. There is no edema. Skin: I did not appreciate any rashes on examination today. Results & Data ([facility]) Vital Signs (Past 12 Hours) Vital Signs Temp Pulse Pulse Pulse Resp BP BP 01/08/20 07:37 36.6 C 57 L 16 01/08/20 07:23 54 L 01/08/20 03:58 36.5 C 60 16 147/88 H 01/08/20 00:19 57 L 01/07/20 23:46 36.5 C 52 L 18 01/07/20 22:50 71 16 160/79 H 01/07/20 22:00 69 16 155/80 H BP Pulse Ox 01/08/20 07:37 124/74 95 01/08/20 07:23 01/08/20 03:58 96 01/08/20 00:19 01/07/20 23:46 169/88 H 92 01/07/20 22:50 98 01/07/20 22:00 98 Laboratory Results Abnormal Lab Results 01/07/20 01/07/20 01/07/20 17:45 17:45 17:45 WBC 7.80 RBC 5.18 Hgb 15.2 Hct 45.4 MCV 87.6 MCH 29.3 MCHC 33.5 RDW Std Deviation 44.1 RDW Coeff of Bertram 13.7 Plt Count 228 MPV 10.8 H Immature Gran % (Auto) 0.3 Neut % (Auto) 66.2 Lymph % (Auto) 20.1 Williamson % (Auto) 11.9 Eos % (Auto) 1.2 Baso % (Auto) 0.3 Neut # (Auto) 5.17 Lymph # (Auto) 1.57 Williamson # (Auto) 0.93 H Eos # (Auto) 0.09 Baso # (Auto) 0.02 Immature Gran # (Auto) 0.02 PT 10.9 INR 1.0 APTT 31.6 H PTT Ratio 1.1 Sodium 139 Potassium 3.9 Chloride 108 H Carbon Dioxide 23 Anion Gap 8.0 BUN 16 Creatinine 0.95 Est Cr Clr Drug Dosing 76.0 Est GFR ( Amer) 91.7 Est GFR (Non-Af Amer) 79.1 BUN/Creatinine Ratio 16.7 Glucose 86 Calcium 8.8 Magnesium 2.1 Total Bilirubin 0.5 AST 19 ALT 25 Alkaline Phosphatase 74 Troponin I < 0.015 Total Protein 6.8 Albumin 3.5 Globulin 3.3 Albumin/Globulin Ratio 1.1 Lipase 66 L COVID-19 Eval Order 01/07/20 01/08/20 01/08/20 23:45 06:10 06:10 WBC 7.21 RBC 5.15 Hgb 15.2 Hct 45.5 MCV 88.3 MCH 29.5 MCHC 33.4 RDW Std Deviation 44.6 RDW Coeff of Bertram 13.8 Plt Count 226 MPV 11.0 H Immature Gran % (Auto) Neut % (Auto) Lymph % (Auto) Williamson % (Auto) Eos % (Auto) Baso % (Auto) Neut # (Auto) Lymph # (Auto) Williamson # (Auto) Eos # (Auto) Baso # (Auto) Immature Gran # (Auto) PT INR APTT PTT Ratio Sodium 141 Potassium 3.9 Chloride 108 H Carbon Dioxide 27 Anion Gap 6.0 BUN 16 Creatinine 1.03 Est Cr Clr Drug Dosing 70.1 Est GFR ( Amer) 83.1 Est GFR (Non-Af Amer) 71.7 BUN/Creatinine Ratio 15.6 Glucose 92 Calcium 8.4 L Magnesium 2.2 Total Bilirubin AST ALT Alkaline Phosphatase Troponin I < 0.015 Total Protein Albumin Globulin Albumin/Globulin Ratio Lipase COVID-19 Eval Order 01/08/20 09:45 WBC RBC Hgb Hct MCV MCH MCHC RDW Std Deviation RDW Coeff of Bertram Plt Count MPV Immature Gran % (Auto) Neut % (Auto) Lymph % (Auto) Williamson % (Auto) Eos % (Auto) Baso % (Auto) Neut # (Auto) Lymph # (Auto) Williamson # (Auto) Eos # (Auto) Baso # (Auto) Immature Gran # (Auto) PT INR APTT PTT Ratio Sodium Potassium Chloride Carbon Dioxide Anion Gap BUN Creatinine Est Cr Clr Drug Dosing Est GFR ( Amer) Est GFR (Non-Af Amer) BUN/Creatinine Ratio Glucose Calcium Magnesium Total Bilirubin AST ALT Alkaline Phosphatase Troponin I Total Protein Albumin Globulin Albumin/Globulin Ratio Lipase COVID-19 Eval [facility] Diagnostic Findings A chest x-ray obtained at the time of admission did not reveal any acute cardiopulmonary process Ultrasound of the gallbladder did not reveal any gallstones or acute process. ECG Additional Comments: EKGs obtained since admission revealed normal sinus rhythm without significant ST or T-wave changes. PG Care Time/CCT Total # of Minutes Spent Total Time Spent with Patient: Total time spent is greater than 50% in coordination of care (as documented) at patient's floor/unit and/or counseling patient: Coding Level of Care Code 10008 Initial Inpt Care Lvl 3 Diagnoses Precordial chest pain R07.2
--- NOTE | 2020-01-08 10:34 | Pre Anesthesia Assessment ---
Date of Service January 08, 2020 Pre Sedation Assessment Vital Signs Temp Pulse Pulse Pulse Resp BP BP 01/08/20 07:37 36.6 C 57 L 16 01/08/20 07:23 54 L 01/08/20 03:58 36.5 C 60 16 147/88 H 01/08/20 00:19 57 L 01/07/20 23:46 36.5 C 52 L 18 01/07/20 22:50 71 16 160/79 H 01/07/20 22:00 69 16 155/80 H 01/07/20 20:35 65 16 146/90 H 01/07/20 19:00 93 H 16 151/98 H 01/07/20 18:30 60 24 163/94 H 01/07/20 18:00 60 18 162/95 H 01/07/20 17:30 58 L 15 01/07/20 17:28 57 L 15 01/07/20 17:26 68 19 132/76 01/07/20 17:23 57 L 15 132/76 01/07/20 16:52 36.8 C 65 18 153/98 H BP Pulse Ox 01/08/20 07:37 124/74 95 01/08/20 07:23 01/08/20 03:58 96 01/08/20 00:19 01/07/20 23:46 169/88 H 92 01/07/20 22:50 98 01/07/20 22:00 98 01/07/20 20:35 96 01/07/20 19:00 98 01/07/20 18:30 01/07/20 18:00 95 01/07/20 17:30 95 01/07/20 17:28 96 01/07/20 17:26 95 01/07/20 17:23 94 01/07/20 16:52 95 Cardiovascular + regular rate Respiratory + respiratory effort normal Pre-Sedation Airway Assessment Smoking Status: Never smoker Hx Sleep Apnea: No Hx Difficult Intubation: No Short, Thick Neck: No Thyromental Distance: > or= 3.5 Finger Breadths Oral Cavity: + WNL Mallampati Class: III ASA: ASA3 Procedure Planning Contraindications for Sedation: none Current Medications Reviewed: Yes Notes The planned sedation has been discussed with the patient. Informed Consent was obtained. I have identified the patient, determined the appropriateness of sedation and have assessed the patient immediately prior to the procedure. All medicine(s) and interventions are by my order.
--- NOTE | 2020-01-08 10:42 | Hospitalist Progress Note ---
Date of Service January 08, 2020 Assessment & Plan (1) Precordial chest pain: 1. Precordial chest pain - stress test indicative of cardiac ischemia - cath showed stable coronary artery disease without need for stenting - appreciate cardiac consult - witholding plavix until EGD - 40 atorvastatin - 25 mg metoprolol in AM - continue ASA 2. epigastric pain - gastro consult appreciated - plan for outpatient egd - ppi bid - cbc/bmp in am dvt ppx: lovenox daily FEN/GI: cardiac diet code status: full code dispo: PCU, possible d/c tomorrow (2) Epigastric abdominal pain: (3) Black stools: (4) BPH (benign prostatic hyperplasia): Admission and Anticipated Discharge Date Admission Date: January 07, 2020 Supervising Physician Co-Signing Physician Notes I also saw the patient and confirmed lucia portions of the history and exam. Upon exam, the patient is without complaint. His story has both symptoms I would related to GI/GERD as well as some activity-related symptoms and decreased exertional capacity. His stress test and cath were reviewed with the patient. Appreciate cardiology consultation and GI consultation. PPI BID plus carafate QID. EGD as outpatient. OK to continue ASA for now; no NSAIDs. Add beta kieran and statin in light of CAD. Discontinue red yeast rice. CBC and BMP in AM. Possible d/c in AM. Subjective 74 yo M admitted for chest and epigastric pain that was getting worse over the past 2 weeks. Says he would get tight, uncomfortable chest pain across his sternum at random intervals, sometimes when sitting. Denies exacerbation when walking or going up stairs. Says multiple times he would wake up in the middle of the night with in a cold sweat and chest pain. He states his stomach pain would also get better after eating. He denies nausea and vomiting, diarhea and constipation. THe stomach pain also improved with use of pepto-bismol, but after using the peptobismol he started having melanotic stool. this ended after stopping the medication. Review of Systems Constitutional: no fever, no chills, no body aches and no fatigue Respiratory: no cough and no dyspnea Cardiovascular: + chest pain; no dyspnea and no edema Gastrointestinal: + abdominal pain, + nausea, + diarrhea/loose stools and + melena; no vomiting and no constipation Physical Exam Physical Exam: The patient is alert and oriented. Mood and affect appeared normal. He answered all questions appropriately. HEENT: Pupils are equal and reactive to light and accommodation. Extraocular movements are intact. The sclerae are anicteric.. Lungs: Clear to auscultation bilaterally. good air movement without use of accessory muscles. No rales wheezes or rhonchi. Chest: Mild tenderness to palpation around the xiphoid process. Cardiac: regular rate and rhythm. Normal S1 and S2. No murmurs on examination. Pulses: The patient has palpable radial pulses bilaterally that are equal in intensity Extremities: 2+ peripheral pulses, There is no cyanosis or clubbing. There is no edema. Results & Data Results & [facility] ([facility]) Vital Signs (Past 12 Hours) Vital Signs Temp Pulse Pulse Pulse Resp BP BP 01/08/20 07:37 36.6 C 57 L 16 01/08/20 07:23 54 L 01/08/20 03:58 36.5 C 60 16 147/88 H 01/08/20 00:19 57 L 01/07/20 23:46 36.5 C 52 L 18 01/07/20 22:50 71 16 160/79 H BP Pulse Ox 01/08/20 07:37 124/74 95 01/08/20 07:23 01/08/20 03:58 96 01/08/20 00:19 01/07/20 23:46 169/88 H 92 01/07/20 22:50 98 Laboratory Results WBC 7.21 K/uL (4.8-10.8) 01/08/20 06:10 RBC 5.15 M/uL (4.7-6.1) 01/08/20 06:10 Hgb 15.2 g/dL (14.0-18.0) 01/08/20 06:10 Hct 45.5 % (42-52) 01/08/20 06:10 MCV 88.3 fL (80-100) 01/08/20 06:10 MCH 29.5 pg (25-34) 01/08/20 06:10 MCHC 33.4 g/dL (32-36) 01/08/20 06:10 RDW Std Deviation 44.6 fL (36.4-46.3) 01/08/20 06:10 RDW Coeff of Bertram 13.8 % (11.5-14.5) 01/08/20 06:10 Plt Count 226 K/uL (130-400) 01/08/20 06:10 MPV 11.0 fL (7.4-10.4) H 01/08/20 06:10 Immature Gran % (Auto) 0.3 % 01/07/20 17:45 Neut % (Auto) 66.2 % 01/07/20 17:45 Lymph % (Auto) 20.1 % 01/07/20 17:45 [place] % (Auto) 11.9 % 01/07/20 17:45 Eos % (Auto) 1.2 % 01/07/20 17:45 Baso % (Auto) 0.3 % 01/07/20 17:45 Neut # (Auto) 5.17 K/uL (1.4-6.5) 01/07/20 17:45 Lymph # (Auto) 1.57 K/uL (1.2-3.4) 01/07/20 17:45 [place] # (Auto) 0.93 K/uL (0.11-0.59) H 01/07/20 17:45 Eos # (Auto) 0.09 K/uL (0-0.5) 01/07/20 17:45 Baso # (Auto) 0.02 K/uL (0-0.2) 01/07/20 17:45 Immature Gran # (Auto) 0.02 K/uL (0.00-0.02) 01/07/20 17:45 PT 10.9 Seconds (9.0-12.0) 01/07/20 17:45 INR 1.0 (0.9-1.1) 01/07/20 17:45 APTT 31.6 Seconds (21.0-31.0) H 01/07/20 17:45 PTT Ratio 1.1 01/07/20 17:45 Sodium 141 mmol/L (136-145) 01/08/20 06:10 Potassium 3.9 mmol/L (3.5-5.1) 01/08/20 06:10 Chloride 108 mmol/L (98-107) H 01/08/20 06:10 Carbon Dioxide 27 mmol/L (21-32) 01/08/20 06:10 Anion Gap 6.0 (3-11) 01/08/20 06:10 BUN 16 mg/dl (7-18) 01/08/20 06:10 Creatinine 1.03 mg/dl (0.6-1.4) 01/08/20 06:10 Est Cr Clr Drug Dosing 70.1 ml/min 01/08/20 06:10 Est GFR ( Amer) 83.1 01/08/20 06:10 Est GFR (Non-Af Amer) 71.7 01/08/20 06:10 BUN/Creatinine Ratio 15.6 (10-20) 01/08/20 06:10 Glucose 92 mg/dl (70-99) 01/08/20 06:10 Calcium 8.4 mg/dl (8.5-10.1) L 01/08/20 06:10 Magnesium 2.2 mg/dl (1.8-2.4) 01/08/20 06:10 Total Bilirubin 0.5 mg/dl (0.2-1) 01/07/20 17:45 AST 19 U/L (15-37) 01/07/20 17:45 ALT 25 U/L (12-78) 01/07/20 17:45 Alkaline Phosphatase 74 U/L (45-117) 01/07/20 17:45 Troponin I < 0.015 ng/ml (0-0.045) 01/07/20 23:45 Total Protein 6.8 gm/dl (6.4-8.2) 01/07/20 17:45 Albumin 3.5 gm/dl (3.4-5.0) 01/07/20 17:45 Globulin 3.3 gm/dl (2.5-4.0) 01/07/20 17:45 Albumin/Globulin Ratio 1.1 (0.9-2) 01/07/20 17:45 Lipase 66 U/L (73-393) L 01/07/20 17:45 COVID-19 Eval Order Covid19 [facility] 01/08/20 09:45 SARS-CoV-2, RNA, NAAT NEGATIVE (NEGATIVE) 01/08/20 09:45 Resident Activity Tracking Resident Involvement: Resident Care Provided Care Provided: [facility] Medicine
--- NOTE | 2020-01-08 11:43 | Cardiac Catheterization ---
[facility] Data: Information Technology Technician Cardiac Status Clinical evaluation leading to the procedure CAD Presenation: Positive Stress Test Diagnostic Physicians Name: Oscar Vo MD Closure Device Recommendations: Management Recommendatons Cardiac Cath Procedure Full Procedure Date January 08, 2020 Pre-Procedure Diagnosis Pre-Procedure Diagnosis: Angina AUC Score AUC Score: 8 Post-Procedure Diagnosis Post-Procedure Diagnosis: Moderate CAD Procedure(s) Performed Procedure(s) Performed: Coronary Angiography and Left Heart Cath Chemical Processor Oscar Vo MD Estimated Blood Loss Estimated Blood Loss: 8 Medication(s) Medication(s): Fentanyl, Heparin, Lidocaine 1%, Nicardipine, Nitroglycerin and Versed Summary of Findings Procedure performed: Left heart catheterization, selective coronary angiography Staff gem setter: Oscar Vo MD Indication: The patient is a 74-year-old gentleman who presented with symptoms of exertional chest discomfort. Exercise echocardiogram revealed inducible wall motion abnormalities and he was advised to consider coronary angiography for additional evaluation. Procedure in detail: The patient was informed the risk benefits and alternatives to the intended procedure. He understood and wished to proceed. He was taken to the cardiac catheterization suite in a fasting state. Conscious sedation was administered per protocol and the patient was monitored electrocardiographically throughout today's procedure. The right wrist was prepped and draped in usual sterile fa shion. This area was anesthetized using 17 is ministration of lidocaine solution. The right radial artery was subsequently accessed using Seldinger technique and a sheath was placed over guidewire at the site. The sheath was used to facilitate passage of the cardiac catheters for engagement of the coronary arteries and left heart catheterization. Images were obtained in multiple orthogonal views prior to removal of the catheters. The patient tolerated this procedure well. There were no immediate complications. Equipment used: 5 [place] 4 5 Nigerien JR 4 Findings: Coronary angiography Left main: Left main was normal and size and caliber and bifurcated normally into the left anterior descending and left circumflex arteries. Left anterior descending colon the left anterior descending artery is a large transapical vessel. It produced a diminutive first diagonal branch and then narrowed considerably prior to takeoff of a large second diagonal branch. The midportion of the vessel appeared to have at least a 50% stenosis Left circumflex: Left circumflex was a large dominant vessel. It was patulous and somewhat enlarged in its proximal portion. It produced a large first OM branch with some luminal irregularities and approximately 50% stenosis in its proximal portion. The second diminutive OM, a third small obtuse marginal, a large branching fourth OM and ongoing PDA. There appears to be a 60 to 70% stenosis prior to the takeoff of the PDA portion of the left circumflex. Right coronary artery: The right coronary artery was a nondominant vessel. It was small. He did have a discrete 90% stenosis in its midportion. Impression: Left dominant coronary system Mid LAD stenosis of unclear significance Distal left circumflex and mid right coronary disease Normal left ventricular filling pressures Hemodynamics Rest Ao:: 130/83 mmHg Final Ao: 150/77 mmHg LV: 143/30 mmHg, LVEDP of 16 Recommendations Recommendations: Management Recommendatons Specimens Specimens: None Radiation Exposure (mGy) 1678 Contrast (mls) 70 Procedural Complication(s) None Disposition PCU I attest to the content of the Intraoperative Record and any orders documented therein. Any exceptions are noted below. [facility] Card Cath Procedure Codes Cardiac Catheterization Procedure 1: Cardiovascular Cath Procedures: 61299 Coronaries and LHC (+/-LV) Moderate Sedation Procedure 1: Sedation/Anesthesia: 11698 Mod Sedation by the same physician;Init15 Min Child Age 5 & Up PG Care Time/CCT Total # of Minutes Spent Total Time Spent with Patient: Total time spent is greater than 50% in coordination of care (as documented) at patient's floor/unit and/or counseling patient:
[2020-01-08] MEDS: SUCRALFATE 1 GM/10 ML UDC PO SCH ×3 (11:52→19:23)
--- NOTE | 2020-01-08 12:11 | XCELERA ---
[id number] \\[id number]___[id number]
--- NOTE | 2020-01-08 12:15 | Post Anesthesia Assessment ---
Date of Service January 08, 2020 Post Sedation Assessment Vital Signs Temp Pulse Pulse Pulse Resp BP BP 01/08/20 10:43 65 16 01/08/20 07:37 97.9 F 57 L 16 01/08/20 07:23 54 L 01/08/20 03:58 97.7 F 60 16 147/88 H 01/08/20 00:19 57 L 01/07/20 23:46 97.7 F 52 L 18 01/07/20 22:50 71 16 160/79 H 01/07/20 22:00 69 16 155/80 H 01/07/20 20:35 65 16 146/90 H 01/07/20 19:00 93 H 16 151/98 H 01/07/20 18:30 60 24 163/94 H 01/07/20 18:00 60 18 162/95 H 01/07/20 17:30 58 L 15 01/07/20 17:28 57 L 15 01/07/20 17:26 68 19 132/76 01/07/20 17:23 57 L 15 132/76 01/07/20 16:52 98.2 F 65 18 153/98 H BP Pulse Ox 01/08/20 10:43 96 01/08/20 07:37 124/74 95 01/08/20 07:23 01/08/20 03:58 96 01/08/20 00:19 01/07/20 23:46 169/88 H 92 01/07/20 22:50 98 01/07/20 22:00 98 01/07/20 20:35 96 01/07/20 19:00 98 01/07/20 18:30 01/07/20 18:00 95 01/07/20 17:30 95 01/07/20 17:28 96 01/07/20 17:26 95 01/07/20 17:23 94 01/07/20 16:52 95 Recovery Score Activity: Moves 4 extremities Respiration: Deep Breath/Cough Circulation: +/-20% PreAnes Value Consciousness: Fully Awake Oxygen Saturation: O2 needed for >90% Discharge Sedation Level of Care: Fast Track Phase II Post Sedation Plan On clinical assessment, the patient appears to have tolerated the sedation without complications. Patient is recovering as anticipated. Patient will continue to be monitored by nursing and may be discharged when sedation discharge criteria are met per below protocol. Upon Completions of procedure up to 15 minutes continue every 5 minute vital signs and the P.A.R. score; then discharge to a Phase I or Fast Track to Phase II per the following guidelines: * Discharge Patient to appropriate Phase II area if PAR is 8 or greater or return to pre- procedure baseline. The post - procedure orders will be as directed. * If PAR score is less than 8 or not return to pre-procedure baseline then patient will follow Phase I monitoring till PAR is reached for Phase II. The Phase I may be done in procedure room or may call to secure a Phase I area. * If naloxone or flumazenil are used for reversal, hold in Phase I for continued monitoring from when last reversal dose was given for a minimum of 60 minutes or longer pending the nurse and/or physician discretion of patient condition before discharge to Phase II. Please call the Sedation Physician to re-evaluate and complete post-note for discharge to Phase II area. Do NOT discharge from procedure sedation or Phase 1 until post- sedation evaluation note is complete by procedure /sedation MD Sedation Discharge Instructions to be given to the patient at discharge to home.
--- NOTE | 2020-01-08 12:24 | Cardiac Catheterization ---
[facility] Data: Cardiac Surgeon Cardiac Status Clinical evaluation leading to the procedure CAD Presenation: Positive Stress Test and Stable angina Anginal Classification: CCS III Heart Failure: No Cardiogenic Shock within 24 Hours: No Cardiac Arrest within 24 Hours: No Imaging Studies Past 6 Months: Yes Stress Studies Past 6 Months: Yes Stress Echocardiogram: Yes - Indeterminant Diagnostic Physicians Name: Oscar Alicea MD Closure Device Percutaneous Entry Location: Radial Closure Device: Radial Band Recommendations: Management Recommendatons Intraprocedure Events Significant Disection: No Perforation: No Cardiac Cath Procedure Full Procedure Date January 08, 2020 Pre-Procedure Diagnosis Pre-Procedure Diagnosis: Angina and CAD AUC Score AUC Score: 8 Post-Procedure Diagnosis Post-Procedure Diagnosis: Moderate CAD and Severe CAD Procedure(s) Performed Procedure(s) Performed: Coronary Angiography, Ultrasound Guided Vascular Access and IVUS On Site Coordinator Oscar Alicea MD Tracing Lathe Set Up Operator(s) Saul Estimated Blood Loss Estimated Blood Loss: 10 Medication(s) Medication(s): Fentanyl, Heparin, Nicardipine, Nitroglycerin and Versed Summary of Findings For full details of patient's coronary angiography please see cath report dictated by Dr. Vo. Briefly, patient found to have a intermediate mid LAD disease along with severe nondominant RCA disease and small distal circumflex/left PLB disease. Decision to proceed with IVUS/FFR of LAD Procedure: -Left main cannulated with EBU 3.5 guide -Washer Hand 50 wire placed into distal LAD [place] IVUS catheter placed into mid LAD. Pullback revealed eccentric, calcified plaque extending from takeoff of large second diagonal back into proximal segment (MLA 3.8 mm) [place] IVUS catheter removed -ACIST Catheter placed across stenosis -Pd/Pa 0.95 -FFR 0.84 -Coronary angiography revealed no apparent complications post wire/catheter removal Summary: 1. Nonobstructive moderate mid LAD stenosis (FFR 0.84). 2. Severe nondominant RCA, small distal circumflex/left PLB disease Recommendations: No high risk, critical CAD. Recommend trial of medical management and antianginal therapy. Continue planned GI work-up. If refractory anginal symptoms in the future stenting of small nondominant right and left PLB could be considered. Hemodynamics Rest Ao:: 157/90/112 Final Ao: 132/76/124 LV: -- Recommendations Recommendations: Management Recommendatons Specimens Specimens: None Radiation Exposure (mGy) 2251 Contrast (mls) 100 Fluids (cc crystalloids) Fluids (cc crystalloids): 100 Drains Drains: none Anesthesia moderate Procedural Complication(s) None Disposition PCU I attest to the content of the Intraoperative Record and any orders documented therein. Any exceptions are noted below. [facility] Card Cath Procedure Codes Cardiac Catheterization Procedure 1: Cardiovascular Cath Procedures: 46946 (Doppler) Pressure Wire Therapeutic Services & Ancillary Proc Procedure 1: Cardiovascular Tx and Anc Procedures: 10137 IV Ultrasound (Coronary or Graft) Moderate Sedation Procedure 1: Sedation/Anesthesia: 28175 Mod Sedation by the same physician; Ea [id number] Minutes PG Care Time/CCT Total # of Minutes Spent Total Time Spent with Patient: Total time spent is greater than 50% in coordination of care (as documented) at patient's floor/unit and/or counseling patient:
[2020-01-08] MEDS ORDERED: SODIUM CHLORIDE 0.9% 1000ML 1,000 ML IV SCH (12:45)
--- NOTE | 2020-01-08 13:20 | XCELERA ---
[id number] \\[id number]___[id number]
--- NOTE | 2020-01-08 18:11 | Electrocardiogram Report ---
Test Reason : Blood Pressure : / mmHG Vent. Rate : 057 BPM Atrial Rate : 057 BPM P-R Int : 138 ms QRS Dur : 080 ms QT Int : 422 ms P-R-T Axes : 042 007 053 degrees QTc Int : 410 ms Poor data quality, interpretation may be adversely affected Sinus bradycardia Abnormal ECG When compared with ECG of 14-MAR-2017 22:10, No significant change was found Confirmed by Oscar Vo ([id number]) on 01/08/2020 6:11:16 PM Referred By: REFERRED SELF Confirmed By:Aden Vo
--- NOTE | 2020-01-08 18:17 | Electrocardiogram Report ---
Test Reason : Blood Pressure : / mmHG Vent. Rate : 060 BPM Atrial Rate : 060 BPM P-R Int : 162 ms QRS Dur : 076 ms QT Int : 452 ms P-R-T Axes : 047 020 049 degrees QTc Int : 452 ms Sinus rhythm with Premature atrial complexes Otherwise normal ECG When compared with ECG of 07-JAN-2020 17:20, (unconfirmed) Premature atrial complexes are now Present Confirmed by Oscar Vo ([id number]) on 01/08/2020 6:17:30 PM Referred By: REFERRED SELF Confirmed By:Aden Vo
[2020-01-08] MEDS: METOPROLOL TARTRATE 25 MG TAB PO SCH (19:23)
[2020-01-09 07:16] LABS: Calcium 8.3 mg/dl (8.5-10.1); Creatinine Clr Calc Pharmacy 70.1 ml/min; Est GFR (African American) 83.1; Est GFR (Non-African American) 71.7; Potassium 4.1 mmol/L (3.5-5.1)
[2020-01-09] MEDS: SUCRALFATE 1 GM/10 ML UDC PO SCH ×2 (07:41→11:14)
[2020-01-09] MEDS: METOPROLOL TARTRATE 25 MG TAB PO SCH (07:42)
[2020-01-09] MEDS: PANTOprazole 40 MG in SYRINGE 0 ML IV SCH (07:43)
[2020-01-09] MEDS ORDERED: NON-FORMULARY MEDICATION (Saw Palmetto 450 mg Capsule) PO SCH (09:00)
[2020-01-09] MEDS ORDERED: NON-FORMULARY MEDICATION (Flaxseed Oil 1,000 mg Capsule) PO SCH (09:00)
[2020-01-09] MEDS ORDERED: NON-FORMULARY MEDICATION (Omeprazole 40 mg capsule,delayed release(DR/EC)) PO SCH (09:00)
[2020-01-09] MEDS ORDERED: OMEGA-3 (PURIFIED FISH OIL) 1 GM CAP PO SCH (09:00)
[2020-01-09] MEDS ORDERED: MULTIVITAMIN TAB PO SCH (09:00)
[2020-01-09] MEDS ORDERED: ISOSORBIDE MONO EXTENDED REL 30 MG TABCR PO SCH (09:00)
[2020-01-09] MEDS ORDERED: CHOLECALCIFEROL 1,000 UNITS 25 MCG TAB PO SCH (09:00)
[2020-01-09] MEDS: ASPIRIN 81 MG ECTAB PO SCH (10:54)
[2020-01-09] MEDS ORDERED: ATORVASTATIN 40 MG TAB PO SCH (11:45)
--- NOTE | 2020-01-09 12:01 | Discharge Summary ---
Date of Service January 09, 2020 Admission HPI Per Admitting Provider 74yo M w/ hx of HLD and BPH who presents for chest/epigastric pain. He reports the pain began about 2 weeks ago. He was raking leaves that day and had no issues; however, that night he woke up with chest pain that radiated across his chest and was accompanied by sweating, nausea, lightheadedness. It gradually faded; however, he has been having ongoing episodes like this since then along with accompanying nausea. He has not had any emesis, but does report that 2-3 days ago he had one episode of dark, melenic stools. He also has felt short of breath and clammy with these episodes. He reports that it does seem to improve slightly with eating, but otherwise no major ameliorating or exacerbating factors. Admission Exam Per Admitting Provider Constitutional: WD/WN, vitals as above Eyes: EOM intact bilaterally; no conjunctival abnormality ENMT: external ear and nose normal, oropharynx normal Neck: trachea midline, no thyromegaly normal visual inspection Respiratory: normal respiratory effort, lungs clear to auscultation no respiratory distress Cardiovascular: RRR, no murmur, no edema Gastrointestinal (Abdomen): Inspection/Auscultation: abdomen normal to inspection; abdomen not distended Musculoskeletal: no cyanosis or clubbing, extremities motor strength 5/5 Skin: no rashes, warm and dry Neurologic: moves all extremities and awake Psychiatric: Orientation: alert, oriented to person and cooperative Principal Diagnosis chest pain CAD epigastric pain GERD Discharge Exam Constitutional WD/WN, vitals as above Eyes PERRL, conjunctivae normal, anicteric sclerae ENMT external ear and nose normal, oropharynx normal Neck normal visual inspection Respiratory normal respiratory effort, lungs clear to auscultation Cardiovascular RRR, no murmur, no edema Chest (Breasts) Additional Comments: - nTTP Gastrointestinal (Abdomen) Inspection/Auscultation: abdomen normal to inspection and normal bowel sounds; abdomen not distended Skin no rashes, warm and dry Psychiatric A+Ox3, euthymic affect Discharge Data Allergies Allergy/AdvReac Type Severity Reaction Status Date / Time No Known Allergies Allergy Verified 01/07/20 15:39 Consultations 01/07/20 19:32 ED Decision to Admit Stat 01/07/20 23:19 Consult Cardiology Routine Consult Gastroenterology Routine Procedures Performed Operation Date: 01/08/20 10:30 Actual Procedures p Cath, Left with Cors and Vent - Sami Vo MD s Cineradiography w/Routine Exam - Sami Vo MD s IVUS Coronary Single Vessel - Sami Alicea MD s Fraction Flow [place] SGL Ves - Sami Alicea MD Ordered Studies 01/07/20 17:41 US gallbladder Stat 01/08/20 09:44 CL Cath Imgs for PACS use only Routine 01/08/20 12:21 CL IVUS Coronary Single Vessel Routine Hospital Course (1) Precordial chest pain: 74 yo M w/ known history of cardiac disease w/ 2 weeks of chest pain had positive stress test and cath on 01/07 w/ findings of multiple areas of stenosis, no stents placed. Precordial chest pain - stress test indicative of cardiac ischemia - ECHO EF 55-60% - cath showed non obstructive moderate mid LAD stenosis and severe non dominant RCA, small distal circ., left PLB. - started 40 mg atorvastatin - started 25 mg metoprolol succinate daily - started 30 mg Imdur - continue ASA - will follow up with cardiology - if blood pressure continues to be elevated in the outpatient setting would consider starting a ACEi Epigastric pain - seen by Dr. Estrada while inpatient - outpatient EGD ordered - Omeprazole 40 mg bid Total Time Total Time Spent Total Time Spent (In Minutes): 40 Total Time Includes: Examination of the Patient, Discharge Planning and Communication With Other Providers Discharge Plan Discharge Items Patient Disposition: Home - Self-Care Reason For Visit: ABDOMINAL PAIN, STOMACH ULCER Discharge Diagnosis: coronary artery disease Condition on Discharge: Good Activity: Per Instructions section Non-emergency contact: Primary Care Provider and [employer] Call non-emergency contact if: your symptoms worsen Follow-up/Referrals: Maico Saunders III, MD [Primary Care Provider] - Diet: Heart Healthy Addtl Attending Provider Instructions: Chest pain You came to the hospital with chest pain. You were found to have concerning findings on the stress test, for poor blood supply to the heart. You had a catheterization and they identified that you have narrowing of some of the blood vessels to your heart. We will make adjustments to your medications and you will need to follow up with your primary doctor and your master at arms. You will continue your aspirin 81 mg. per day. You will start a statin, 40 mg Atorvastatin daily to lower your cholesterol and stabilize the plaques that are in the vessels in your heart. To decrease your risk of cardiac events you should start a heart healthy diet and/or Mediterranean diet. If your pain worsens or changes in nature call or come in to get evaluated. Cath You had a catheterization with the access in your arm. You should not have your arm in water for the next [address] for the next 3 days. Avoid using machinery for the next week. Listen to your body and avoid things that are causing you to develop chest pain or shortness of breath. Hypertension You were found you have elevated blood pressure. We added some medications to address the elevated blood pressure including Metoprolol and Imdur. If you are feeling dizzy, lightheaded, like you are going to pass our or pass out then we will want you to check your blood pressure and call or come in. Your blood pre ssure medication may need to be adjusted with your primary care doctor and your master at arms. Reflux You have pain that is consistent with acid reflux. You will need to have a outpatient EGD scheduled. You will increase the Omeprazole that you take to 40 mg twice a day. Pending Studies at Discharge: No Stand-Alone Forms: My [facility], Smoking Cessation Medications and DC Order Prescriptions: New atorvastatin 40 mg tablet 40 mg PO DAILY Qty: 30 RF: 3 metoprolol succinate 25 mg tablet extended release 24 hr 25 mg PO DAILY Qty: 30 RF: 0 omeprazole 40 mg capsule,delayed release(DR/EC) 40 mg PO BID 30 Days Qty: 60 RF: 0 isosorbide mononitrate 30 mg tablet extended release 24 hr 30 mg PO QAM 30 Days Qty: 30 RF: 3 Continued multivitamin Tablet 1 tab PO QAM Qty: 0 RF: 0 aspirin [Aspirin Low Dose] 81 mg Tablet,Delayed Release (Dr/Ec) 81 mg PO QAM Qty: 0 RF: 0 cholecalciferol (vitamin D3) 1,000 unit Capsule 1,000 unit PO QAM Qty: 0 RF: 0 selenium 200 mcg Capsule 200 mcg PO QAM Qty: 0 RF: 0 flaxseed oil 1,000 mg Capsule 1,200 mg PO QAM Qty: 0 RF: 0 saw palmetto 450 mg Capsule 450 mg PO QAM RF: 0 Fish Oil 120 mg-180 mg- 60 mg-1,200 mg Capsule,Delayed Release(Dr/Ec) 1 cap PO QAM RF: 0 Discontinued red yeast rice 600 mg Capsule 600 mg PO QAM Qty: 0 RF: 0 omeprazole 40 mg capsule,delayed release(DR/EC) 40 mg PO DAILY Qty: 90 RF: 3 Discharge Orders: Discharge Order (Routine); Ordered 01/09/20 Ordered By: Raghu Daugherty/Other Patient Handouts: Tips to Control Acid Reflux, Cardiac Catheterization Dc, Eating Heart-Healthy Foods Admission Data Admit Date/Time: 01/07/20 21:29 Attending Provider: Issa Gaona Admit Provider: Emir Pulido Primary Care Provider: Maico Saunders III Other Providers: Luz Sanon ; Ciera Albright ; Sami Vo ; Nahum Estrada Other Interventions: Discharge Summary Assessment (RN) Last Done: 01/09/20 14:20 Supervising Physician Co-Signing Physician Notes I also saw the patient and confirmed lucia portions of the history and exam. He is without chest pain or shortness of breath. Reviewed the medication changes, including addition of atorvastatin, Toprol, and Imdur. Also will increase his omeprazole to twice daily. Reasonable to continue aspirin for the time being. He will be set up for an outpatient follow-up with gastroenterology for potential EGD. It is noted that he has had previous EGD for esophageal dilatation. I agree with the impression and plan and other instructions as noted in the resident documentation Resident Activity Tracking Resident Involvement: Resident Care Provided Care Provided: Adult Hospital Medicine CBC Results Results Complete Blood Count Results: RBC 5.15 M/uL (4.7-6.1) 01/08/20 WBC 7.21 K/uL (4.8-10.8) 01/08/20 Hgb 15.2 g/dL (14.0-18.0) 01/08/20 Hct 45.5 % (42-52) 01/08/20 Plt Count 226 K/uL (130-400) 01/08/20 Chemistry (BMP) Results BMP Results: Sodium 139 mmol/L (136-145) 01/09/20 Potassium 4.1 mmol/L (3.5-5.1) 01/09/20 Chloride 108 mmol/L (98-107) H 01/09/20 BUN 15 mg/dl (7-18) 01/09/20 Creatinine 1.03 mg/dl (0.6-1.4) 01/09/20 Glucose 88 mg/dl (70-99) 01/09/20
== END 2020-01-09 16:12 | disposition home or self-care (01) ==
LOC: ED 16:27 → 2N 16:27 → SUATTDRO 21:29 → 2N 22:50 → 2S 01-08 12:38